=== PATIENT | female | born 1950 | race Caucasian/White ===

== ENCOUNTER 2022-01-02 07:56 | Day surgery (SDC) | payer OTHER ==
[~2022-01-02] VITALS: Ht 155 cm; Wt 77.0 kg
[~2022-01-02 07:56] MED LIST: ACETAMINOPHEN500 M1 PO; ASPIRIN EC325 MG PO; BACLOFEN 10MG T10 MG PO; CERTAGEN1 EACH PO; FEOSOL325 MG PO; MIRALAX17 G1 PO; NORVASC5 MG PO; PERCOCET 5/3251 TAB PO; PRILOSEC20 MG PO; PRINIVIL20 MG PO; PROTONIX 40MG T40 MG PO; WELLBUTRIN XL150 MG PO
--- NOTE | 2022-01-02 13:19 | NUR ---
PT HAD A RRTSR THIS DATE. PER LUCÍA DYER, ORTHO LIASIOSORIO. PT WILL NOT HAVE ANY DC NEEDS.
[2022-01-03 06:47] LABS: BASOPHIL 0.1 % (0-2); EOSINOPHIL 0 % (0-7); HCT 38.8 % (37.0-47.0); LYMPHOCYTE 16.8 % (15-48); MCHC 33.5 g/dL (32.0-36.0); MCV 98.5 fL (78.0-100.0); MONOCYTE 7.4 % (0-12); MPV 9.9 fL (6.0-9.5); NEUTROPHIL 75.4 % (41-80); NRBC 0; PLT 279 K/uL (150-400); RBC 3.94 M/uL (4.20-5.40); RDW 12.8 % (11.5-14.0); WBC 13.7 K/uL (4.0-10.5)
[2022-01-03 07:19] LABS: CREATININE 0.53 mg/dL (0.51-0.95); POTASSIUM 4.3 mmol/L (3.5-5.1)
[2022-01-03] MEDS ORDERED: FEOSOL325 MG PO (08:47)
[2022-01-03] MEDS ORDERED: CHILDREN'S ASPI81 MG PO (08:47)
== END 2022-01-03 10:30 | disposition home or self-care (01) ==
LOC: FAS 07:56 → FOFB 12:58 → FAS 01-03 10:30
PROVIDERS: Orthopaedic Surgery
DX: M12.811 Other specific arthropathies, not elsewhere classified, right shoulder (principal); I10 Essential (primary) hypertension; I25.10 Atherosclerotic heart disease of native coronary artery without angina pectoris; K21.9 Gastro-esophageal reflux disease without esophagitis
CPT/HCPCS: 36415; 73020; 80048; 85025; 86850; 86900; 86901; 94010; 97162; 97165; 97530-GP; 97535; C1713; C1776; J0171; J0697; J1100; J2250; J2270; J2405; J2704; J2710; J2795; J3010; J7120